=== PATIENT | male | born 1940 | race Two or more races ===

== ENCOUNTER 2017-10-07 09:46 | Outpatient (CLI) | payer OTHER ==
[~2017-10-07 09:46] MED LIST: INTESTINEX1 CAP PO; NABUMETONE750 MG PO; ORPH100T PO; PROTONIX40 MG PO
== END 2017-10-07 09:51 | disposition home or self-care (01) ==
LOC: LAB 09:46
DX: R97.20 Elevated prostate specific antigen [PSA] (principal)

== ENCOUNTER 2017-10-17 07:23 | Outpatient (CLI) | payer OTHER | END 2017-10-17 15:06 | disposition home or self-care (01) | LOC: SONOGRAMA 07:23 | DX: R97.20 Elevated prostate specific antigen [PSA] (principal) ==

== ENCOUNTER 2017-10-24 11:41 | Outpatient (CLI) | payer OTHER | END 2017-10-24 16:52 | disposition home or self-care (01) | LOC: TOM 11:41 | DX: C61 Malignant neoplasm of prostate (principal) ==

== ENCOUNTER 2017-10-30 10:47 | Outpatient (CLI) | payer OTHER | END 2017-10-30 17:03 | disposition home or self-care (01) | LOC: NUCLEAR 10:47 | DX: C61 Malignant neoplasm of prostate (principal) | CPT/HCPCS: 78306; 78320; A9503 ==

== ENCOUNTER → 2017-11-20 | Outpatient (CLI) | payer OTHER | END | disposition home or self-care (01) | LOC: TOM 09:00 | DX: J43.8 Other emphysema (principal) ==

== ENCOUNTER 2017-12-15 10:20 | Outpatient (CLI) | payer OTHER | END 2017-12-15 10:24 | disposition home or self-care (01) | LOC: RAD 10:20 | DX: I11.9 Hypertensive heart disease without heart failure (principal) ==

== ENCOUNTER → 2018-03-10 11:32 | Outpatient (CLI) | payer OTHER | END | disposition home or self-care (01) | LOC: LAB 11:32 | DX: C61 Malignant neoplasm of prostate (principal) ==

== ENCOUNTER 2018-12-10 12:05 | Outpatient (CLI) | payer OTHER | END 2018-12-10 12:07 | disposition home or self-care (01) | LOC: RAD 12:05 | DX: I11.9 Hypertensive heart disease without heart failure (principal) ==

== ENCOUNTER 2021-08-28 12:46 | Outpatient (CLI) | payer OTHER | END 2021-08-28 12:50 | disposition home or self-care (01) | LOC: RAD 12:46 | PROVIDERS: ATTEND Specialist | DX: M79.641 Pain in right hand (principal); M79.642 Pain in left hand ==

== ENCOUNTER → 2023-03-09 | Emergency (ER) | payer OTHER ==
[~2023-03-09] VITALS: Ht 167.6 cm; Wt 68.0 kg
[~2023-03-09] MED LIST changes: +AMLODIPINE BESY10 MG PO; +BUDESONIDE-FO10.2 GM IH; +FUROSEMIDE20 MG PO; +LISINOPRIL5 MG PO; +TRELEGY ELLIPT1 EACH IH
[2023-03-09 18:00] LABS: HEMATOCRIT 46.6 % (39.0-48.0); HEMOGLOBIN 15.7 g/dL (13-16.00); MEAN CELL VOLUME 83.1 fL (80.0-100.00); MEAN CORPUSCULAR HGB CONC 33.8 g/dl (32.0-36.0); PLATELET COUNT 197 K/uL (150-450); RED BLOOD COUNT 5.61 M/uL (4.00-6.00); RED CELL DISTRIBUTION WIDTH 14.4 % (11.5-14.5)
[2023-03-09 18:17] LABS: CALCIUM 9.7 mg/dL (8.5-10.1); CREATININE SERUM 0.95 mg/dL (0.70-1.30); GFR 75.53; POTASSIUM 4.65 mEq/L (3.5-5.1)
[2023-03-10 11:08] LABS: PH,URINE 5.5 (5.0-8.0); URINE APPEARANCE Clear; URINE BILIRRUBIN Small (NEGATIVE); URINE BLOOD Negative; URINE COLOR Dark Yellow; URINE GLUCOSE Negative (NEGATIVE); URINE LEUKOCYTE Trace; URINE NITRATE Negative; URINE PROTEIN 30 (NEGATIVE); URINE RBC 3.4 uL (0.0-20.8)
[2023-03-10 11:39] LABS: URINE BACTERIA 1.2 uL (0.0-1933); URINE EPITHELIAL CELLS 0.1 uL (0.0-38.8); URINE WBC 0.1 uL (0.0-23.2)
== END | disposition home or self-care (01) ==
LOC: ER 14:02
PROVIDERS: General Practice
DX: U07.1 COVID-19 (principal)

== ENCOUNTER 2023-03-22 08:19 | Emergency (ER) | payer OTHER ==
[~2023-03-22] VITALS: Ht 172.7 cm; Wt 63.5 kg
[2023-03-22 11:17] LABS: HEMATOCRIT 49.5 % (39.0-48.0); HEMOGLOBIN 16.2 g/dL (13-16.00); MEAN CELL VOLUME 83.1 fL (80.0-100.00); MEAN CORPUSCULAR HEMOGLOBIN 27.2 pg (27.00-32.0); MEAN CORPUSCULAR HGB CONC 32.8 g/dl (32.0-36.0); PLATELET COUNT 283 K/uL (150-450); RED BLOOD COUNT 5.95 M/uL (4.00-6.00); RED CELL DISTRIBUTION WIDTH 13.9 % (11.5-14.5)
[2023-03-22 11:58] LABS: CALCIUM 9.6 mg/dL (8.5-10.1); CREATININE SERUM 1.06 mg/dL (0.70-1.30); GFR 66.56; POTASSIUM 5.02 mEq/L (3.5-5.1)
[2023-03-22 12:16] LABS: URINE APPEARANCE Clear; URINE BILIRRUBIN Small (NEGATIVE); URINE BLOOD Negative; URINE COLOR Dark Yellow; URINE GLUCOSE Negative (NEGATIVE); URINE LEUKOCYTE Negative; URINE NITRATE Negative; URINE PROTEIN 30 (NEGATIVE)
[2023-03-22 12:17] LABS: URINE BACTERIA 18.8 uL (0.0-1933); URINE EPITHELIAL CELLS 10.3 uL (0.0-38.8); URINE RBC 13.2 uL (0.0-20.8); URINE WBC 4.3 uL (0.0-23.2)
== END 2023-03-22 14:21 | disposition home or self-care (01) ==
LOC: ER 08:19
PROVIDERS: General Practice
DX: A08.39 Other viral enteritis (principal); E86.0 Dehydration; I10 Essential (primary) hypertension; E11.9 Type 2 diabetes mellitus without complications; Z85.46 Personal history of malignant neoplasm of prostate

== ENCOUNTER 2023-04-16 11:14 | Emergency (ER) | payer OTHER ==
[~2023-04-16] VITALS: Ht 172.7 cm; Wt 68.0 kg
[2023-04-16] MEDS ORDERED: TRELEGY ELLIPT1 EACH IH (12:02)
== END 2023-04-16 12:06 | disposition home or self-care (01) ==
LOC: ER 11:15
DX: R09.81 Nasal congestion (principal); Z76.0 Encounter for issue of repeat prescription; I10 Essential (primary) hypertension; Z87.09 Personal history of other diseases of the respiratory system

== ENCOUNTER 2023-04-26 16:57 | Emergency (ER) | payer OTHER ==
[~2023-04-26] VITALS: Ht 170.2 cm; Wt 68.0 kg
== END 2023-04-26 20:42 | disposition home or self-care (01) ==
LOC: ER 16:58
DX: R42 Dizziness and giddiness (principal)

== ENCOUNTER 2023-07-28 13:16 | Outpatient (CLI) | payer OTHER | END 2023-07-28 13:20 | disposition home or self-care (01) | LOC: RAD 13:16 | PROVIDERS: ATTEND Specialist | DX: J45.998 Other asthma (principal) ==

== ENCOUNTER 2023-08-06 08:49 | Outpatient (CLI) | payer OTHER ==
[2023-08-06 10:38] LABS: ALBUMIN 3.5 gm/dL (3.4-5.0); BILIRUBIN TOTAL 0.76 mg/dL (0.3-1.2); CALCIUM 9.3 mg/dL (8.5-10.1); CREATININE SERUM 0.76 mg/dL (0.70-1.30); GFR 97.71; GLOBULINA 3.1 G/DL (2.4-3.5); POTASSIUM 4.28 mEq/L (3.5-5.1); TOTAL PROTEIN 6.6 gm/dL (6.4-8.2)
[2023-08-06 10:46] LABS: C-REACTIVE PROTEIN 0.38 MG/DL (0.00-0.29)
== END 2023-08-06 08:51 | disposition home or self-care (01) ==
LOC: LAB 08:49
PROVIDERS: ATTEND Specialist
DX: E11.9 Type 2 diabetes mellitus without complications (principal); M00.89 Polyarthritis due to other bacteria

== ENCOUNTER 2023-08-22 10:54 | Emergency (ER) | payer OTHER ==
[~2023-08-22] VITALS: Ht 172.7 cm; Wt 68.0 kg
== END 2023-08-22 15:48 | disposition home or self-care (01) ==
LOC: ER 10:54
DX: I10 Essential (primary) hypertension (principal)

== ENCOUNTER 2023-09-10 09:48 | Outpatient (CLI) | payer OTHER | END 2023-09-10 10:01 | disposition home or self-care (01) | LOC: TOM 09:48 | PROVIDERS: ATTEND Specialist | DX: J47.9 Bronchiectasis, uncomplicated (principal) ==

== ENCOUNTER 2023-09-12 07:28 | Emergency (ER) | payer OTHER ==
[~2023-09-12] VITALS: Ht 172.7 cm; Wt 68.0 kg
[2023-09-12] MEDS ORDERED: 0.9 % SODIUM CHLORIDE 1,000 ML IV SCH (08:45)
[2023-09-12] MEDS ORDERED: METHYLPREDNISOLONE SOD SUCC 40 MG VIAL IV ONE (08:45)
[2023-09-12] MEDS ORDERED: levoFLOXacin IN DEXTROSE 5 % 5 MG/ML PIGGYBAG IV ONE (08:45)
[2023-09-12] MEDS ORDERED: LEVALBUTEROL HCL 0.63 MG/3 ML SOLUTION IH ONE (08:45)
[2023-09-12 08:56] LABS: HEMATOCRIT 44.1 % (39.0-48.0); HEMOGLOBIN 14.8 g/dL (13-16.00); MEAN CELL VOLUME 81.2 fL (80.0-100.00); MEAN CORPUSCULAR HEMOGLOBIN 27.3 pg (27.00-32.0); MEAN CORPUSCULAR HGB CONC 33.6 g/dl (32.0-36.0); PLATELET COUNT 217 K/uL (150-450); RED BLOOD COUNT 5.43 M/uL (4.00-6.00); RED CELL DISTRIBUTION WIDTH 13.9 % (11.5-14.5)
[2023-09-12 10:15] LABS: ABG PH 7.433 (7.35-7.45); ABG PO2 61.5 mmHg (80-100); ABG pCO2 37.8 mmHg (35-45); BASE EXCESS 0.7 mmol/l; BICARBONATE 24.7 mmol/l (23-25); SaO2 92.1 %; Tco2 25.9 mmol/l; o2 21 %
[2023-09-12 10:16] LABS: allen test SATISFACTORY; puncture site RADIAL RIGHT
== END 2023-09-12 12:17 | disposition home or self-care (01) ==
LOC: ER 07:29
PROVIDERS: Emergency Medicine
DX: J44.9 Chronic obstructive pulmonary disease, unspecified (principal)
CPT/HCPCS: 36415; 82803; 93005; 94640; 96365; 96366; 99284; J1956; J3490

== ENCOUNTER → 2023-09-16 | Emergency (ER) | payer OTHER ==
[~2023-09-16] VITALS: Ht 170.2 cm; Wt 68.0 kg
[~2023-09-16] MED LIST changes: +ACETAMINOPHEN 500 MG GEL..CAP PO ONE; +ALBUTEROL SULFATE 3 ML/2.5 MG AMPUL.NEB IH SCH; +CEFTRIAXONE SODIUM 2,000 MG VIAL IV STA; +IPRATROPIUM BROMIDE 0.5 MG/2.5 ML AMPUL.NEB IH STA; +METHYLPREDNISOLONE SOD SUCC 125 MG VIAL IV STA
[2023-09-16 05:31] LABS: HEMATOCRIT 41.7 % (39.0-48.0); HEMOGLOBIN 13.8 g/dL (13-16.00); MEAN CORPUSCULAR HEMOGLOBIN 27.2 pg (27.00-32.0); MEAN CORPUSCULAR HGB CONC 33.1 g/dl (32.0-36.0); PLATELET COUNT 289 K/uL (150-450); RED BLOOD COUNT 5.08 M/uL (4.00-6.00); RED CELL DISTRIBUTION WIDTH 14.1 % (11.5-14.5)
[2023-09-16 05:33] LABS: CALCIUM 8.9 mg/dL (8.5-10.1); CREATININE SERUM 1.06 mg/dL (0.70-1.30); GFR 66.56; POTASSIUM 3.82 mEq/L (3.5-5.1)
[2023-09-16 06:53] LABS: ABG PH 7.437 (7.35-7.45); ABG PO2 52.5 mmHg (80-100); ABG pCO2 39.9 mmHg (35-45); BASE EXCESS 2.1 mmol/l; BICARBONATE 26.3 mmol/l (23-25); SaO2 88.2 %; Tco2 27.6 mmol/l; allen test SATISFACTORY; puncture site RADIAL RIGHT
[2023-09-16 06:54] LABS: o2 21 %
== END | disposition left against medical advice (07) ==
LOC: ER 04:18
DX: J06.9 Acute upper respiratory infection, unspecified (principal); R05.9 Cough, unspecified; R53.81 Other malaise; R50.9 Fever, unspecified
CPT/HCPCS: 36415; 82803; 96365; 99282; J0696; J3490

== ENCOUNTER 2024-01-20 13:36 | Outpatient (CLI) | payer OTHER ==
[~2024-01-20 13:36] MED LIST changes: -ACETAMINOPHEN 500 MG GEL..CAP PO ONE; -ALBUTEROL SULFATE 3 ML/2.5 MG AMPUL.NEB IH SCH; -CEFTRIAXONE SODIUM 2,000 MG VIAL IV STA; -IPRATROPIUM BROMIDE 0.5 MG/2.5 ML AMPUL.NEB IH STA; -METHYLPREDNISOLONE SOD SUCC 125 MG VIAL IV STA
== END 2024-01-20 13:41 | disposition home or self-care (01) ==
LOC: TOM 13:36
PROVIDERS: ATTEND Specialist
DX: J44.9 Chronic obstructive pulmonary disease, unspecified (principal); J47.1 Bronchiectasis with (acute) exacerbation; J47.9 Bronchiectasis, uncomplicated

== ENCOUNTER 2024-03-15 15:44 | Emergency (ER) | payer OTHER ==
[~2024-03-15] VITALS: Ht 172.7 cm; Wt 68.0 kg
== END 2024-03-15 18:44 | disposition home or self-care (01) ==
LOC: ER 15:45
DX: R09.82 Postnasal drip (principal); I10 Essential (primary) hypertension

== ENCOUNTER 2024-03-21 09:48 | Emergency (ER) | payer OTHER ==
[~2024-03-21] VITALS: Ht 172.7 cm; Wt 68.0 kg
[2024-03-21] MEDS ORDERED: CEFTRIAXONE SODIUM 1,000 MG VIAL IM STA (10:14)
== END 2024-03-21 10:36 | disposition home or self-care (01) ==
LOC: ER 09:49
DX: R05.9 Cough, unspecified (principal)

== ENCOUNTER 2024-04-12 11:10 | Outpatient (CLI) | payer OTHER ==
[2024-04-12 12:58] LABS: HEMOGLOBIN 16.6 g/dL (13-16.00); MEAN CELL VOLUME 82.7 fL (80.0-100.00); MEAN CORPUSCULAR HEMOGLOBIN 28.1 pg (27.00-32.0); PLATELET COUNT 208 K/uL (150-450); RED BLOOD COUNT 5.92 M/uL (4.00-6.00); RED CELL DISTRIBUTION WIDTH 14.8 % (11.5-14.5)
[2024-04-12 13:50] LABS: ALBUMIN 3.9 gm/dL (3.4-5.0); ALKALINE PHOSPHATASE 113 U/L (50-136); ALT/SGPT 14 U/L (12-78); ANION GAP 7 (10.0-20.0); AST/SGOT 21 U/L (15-37); BILIRUBIN TOTAL 1.46 mg/dL (0.3-1.2); BLOOD UREA NITROGEN 15 mg/dL (7-18); BUN CREA RATIO 18 (7.0-25.0); CALCIUM 9.8 mg/dL (8.5-10.1); CARBON DIOXIDE 35 mEq/L (21-32); CHLORIDE 105 mmol/L (98-107); CHOL HDL RATIO 2.1 (0-5.0); CHOLESTEROL 145 mg/dL (0-200); CREATININE SERUM 0.85 mg/dL (0.70-1.30); GFR 85.67; GLOBULINA 3.2 G/DL (2.4-3.5); GLUCOSE FASTING 87 mg/dL (65-100); HDL 70 mg/dl (40-60); LDL 55 mg/dl (0-130); OSMOLALITY SERUM 283 MOSM/KG (275-295); POTASSIUM 4.84 mEq/L (3.5-5.1); PROSTATIC SPECIFIC ANTIGEN < 0.010 NG/ML (0.010-4.00); SODIUM 142 mmol/L (136-145); TOTAL PROTEIN 7.1 gm/dL (6.4-8.2); TRIGLYCERIDES 101 mg/dL (0-150); VLDL 20 (0-39)
== END 2024-04-12 11:16 | disposition home or self-care (01) ==
LOC: LAB 11:10
PROVIDERS: ATTEND Specialist
DX: N40.1 Benign prostatic hyperplasia with lower urinary tract symptoms (principal); E78.2 Mixed hyperlipidemia; E11.65 Type 2 diabetes mellitus with hyperglycemia; D64.9 Anemia, unspecified

== ENCOUNTER 2024-05-10 10:20 | Emergency (ER) | payer OTHER ==
[~2024-05-10] VITALS: Ht 172.7 cm; Wt 68.0 kg
[2024-05-10] MEDS ORDERED: KETOROLAC TROMETHAMINE 30 MG VIAL IM STA (12:21)
== END 2024-05-10 12:34 | disposition home or self-care (01) ==
LOC: ER 10:22
DX: M25.579 Pain in unspecified ankle and joints of unspecified foot (principal)
CPT/HCPCS: 96372; 99282; J1885

== ENCOUNTER 2024-05-28 10:28 | Emergency (ER) | payer OTHER ==
[~2024-05-28] VITALS: Ht 172.7 cm; Wt 68.0 kg
[2024-05-28] MEDS ORDERED: FARXIGA5 MG PO (11:24)
[2024-05-28 12:30] LABS: HEMATOCRIT 46.7 % (39.0-48.0); HEMOGLOBIN 15.4 g/dL (13-16.00); MEAN CELL VOLUME 85.1 fL (80.0-100.00); MEAN CORPUSCULAR HEMOGLOBIN 28.1 pg (27.00-32.0); PLATELET COUNT 226 K/uL (150-450); RED BLOOD COUNT 5.48 M/uL (4.00-6.00); RED CELL DISTRIBUTION WIDTH 14.1 % (11.5-14.5)
[2024-05-28 13:02] LABS: URINE APPEARANCE Clear; URINE BILIRRUBIN Small (NEGATIVE); URINE BLOOD Negative; URINE COLOR Dark Yellow; URINE KETONE Trace (NEGATIVE); URINE LEUKOCYTE Negative; URINE NITRATE Negative; URINE PROTEIN Trace (NEGATIVE)
[2024-05-28 13:05] LABS: URINE BACTERIA 9.7 uL (0.0-1933); URINE EPITHELIAL CELLS 4.2 uL (0.0-38.8); URINE RBC 13.4 uL (0.0-20.8); URINE WBC 4.7 uL (0.0-23.2)
[2024-05-28 13:25] LABS: URINE CAST 0.29 uL (0.0-1.40); URINE GLUCOSE 500 MG/DL (NEGATIVE)
[2024-05-28 14:13] LABS: CALCIUM 9.4 mg/dL (8.5-10.1); CREATININE SERUM 0.82 mg/dL (0.70-1.30); GFR 89.29; POTASSIUM 4.73 mEq/L (3.5-5.1)
== END 2024-05-28 14:58 | disposition home or self-care (01) ==
LOC: ER 10:30
PROVIDERS: General Practice
DX: R39.15 Urgency of urination (principal)

== ENCOUNTER 2024-05-31 10:48 | Outpatient (CLI) | payer OTHER ==
[~2024-05-31 10:48] MED LIST changes: +FARXIGA5 MG PO
[2024-05-31 12:23] LABS: HEMATOCRIT 47.3 % (39.0-48.0); HEMOGLOBIN 15.6 g/dL (13-16.00); MEAN CELL VOLUME 84.8 fL (80.0-100.00); PLATELET COUNT 235 K/uL (150-450); RED BLOOD COUNT 5.58 M/uL (4.00-6.00); RED CELL DISTRIBUTION WIDTH 14.5 % (11.5-14.5)
[2024-05-31 12:47] LABS: PH,URINE 6.5 (5.0-8.0); URINE APPEARANCE Clear; URINE BILIRRUBIN Negative (NEGATIVE); URINE BLOOD Negative; URINE COLOR Yellow; URINE KETONE Negative (NEGATIVE); URINE LEUKOCYTE Negative; URINE NITRATE Negative; URINE PROTEIN Negative (NEGATIVE)
[2024-05-31 12:52] LABS: URINE EPITHELIAL CELLS 2.6 uL (0.0-38.8)
[2024-05-31 12:54] LABS: CREATININE URINE RANDOM 47.4 MG/DL (30-125)
[2024-05-31 12:59] LABS: URINE BACTERIA 1.2 uL (0.0-1933); URINE GLUCOSE >=1000 MG/DL (NEGATIVE)
[2024-05-31 13:39] LABS: ALBUMIN 3.7 gm/dL (3.4-5.0); ALKALINE PHOSPHATASE 113 U/L (50-136); ALT/SGPT 9 U/L (12-78); ANION GAP 5 (10.0-20.0); AST/SGOT 15 U/L (15-37); BILIRUBIN TOTAL 1.26 mg/dL (0.3-1.2); BLOOD UREA NITROGEN 17 mg/dL (7-18); BUN CREA RATIO 20 (7.0-25.0); CALCIUM 9.5 mg/dL (8.5-10.1); CARBON DIOXIDE 35 mEq/L (21-32); CHLORIDE 107 mmol/L (98-107); CHOL HDL RATIO 2.2 (0-5.0); CHOLESTEROL 139 mg/dL (0-200); CREATININE SERUM 0.84 mg/dL (0.70-1.30); FREE TRIODOTIRONINE 2.43 pg/ml (2.18-3.98); GFR 86.84; GLUCOSE FASTING 130 mg/dL (65-100); HDL 64 mg/dl (40-60); LDL 52 mg/dl (0-130); OSMOLALITY SERUM 288 MOSM/KG (275-295); SODIUM 143 mmol/L (136-145); T4 FREE 0.92 NG/ML (0.76-1.46); TOTAL PROTEIN 6.7 gm/dL (6.4-8.2); TRIGLYCERIDES 113 mg/dL (0-150); VLDL 22 (0-39)
[2024-05-31 14:04] LABS: PROSTATIC SPECIFIC ANTIGEN < 0.010 NG/ML (0.010-4.00)
[2024-05-31 14:28] LABS: ERYTHROCYTE SEDIMENTATION RATE 7 mm/hr
[2024-06-01 09:29] LABS: PLATELET ESTIMATE NORMAL (NORMAL)
== END 2024-05-31 10:56 | disposition home or self-care (01) ==
LOC: LAB 10:48
PROVIDERS: ATTEND Specialist
DX: E03.9 Hypothyroidism, unspecified (principal); N39.9 Disorder of urinary system, unspecified; D40.0 Neoplasm of uncertain behavior of prostate; E78.2 Mixed hyperlipidemia; E11.65 Type 2 diabetes mellitus with hyperglycemia; D64.9 Anemia, unspecified; N39.0 Urinary tract infection, site not specified; E11.21 Type 2 diabetes mellitus with diabetic nephropathy; E55.9 Vitamin D deficiency, unspecified; M35.3 Polymyalgia rheumatica

== ENCOUNTER 2024-06-23 16:32 | Emergency (ER) | payer OTHER ==
[~2024-06-23] VITALS: Ht 172.7 cm; Wt 68.0 kg
[2024-06-23] MEDS ORDERED: GUAIFENESIN/DEXTROMETHORPHAN 10ML BLIST.PACK PO ONE (19:58)
[2024-06-23] MEDS ORDERED: GUAIFENESIN 200 MG/10 ML BLIST.PACK PO ONE (20:00)
[2024-06-23] MEDS ORDERED: BENZONATATE 100 MG CAPSULE PO ONE (20:00)
[2024-06-23 20:04] LABS: HEMATOCRIT 47.3 % (39.0-48.0); HEMOGLOBIN 15.3 g/dL (13-16.00); MEAN CELL VOLUME 84.6 fL (80.0-100.00); MEAN CORPUSCULAR HEMOGLOBIN 27.4 pg (27.00-32.0); MEAN CORPUSCULAR HGB CONC 32.4 g/dl (32.0-36.0); PLATELET COUNT 251 K/uL (150-450); RED CELL DISTRIBUTION WIDTH 14.1 % (11.5-14.5)
[2024-06-23 20:42] LABS: CALCIUM 9.3 mg/dL (8.5-10.1); CREATININE SERUM 0.9 mg/dL (0.70-1.30); GFR 80.2; POTASSIUM 4.15 mEq/L (3.5-5.1)
== END 2024-06-23 21:49 | disposition home or self-care (01) ==
LOC: ER 16:34
PROVIDERS: Emergency Medicine
DX: R53.81 Other malaise (principal); J40 Bronchitis, not specified as acute or chronic; R05.9 Cough, unspecified; Z20.822 Contact with and (suspected) exposure to COVID-19; I10 Essential (primary) hypertension

== ENCOUNTER → 2024-06-29 | Emergency (ER) | payer OTHER ==
[~2024-06-29] VITALS: Ht 172.7 cm; Wt 68.0 kg
== END | disposition left against medical advice (07) ==
LOC: ER 12:06
DX: Z53.21 Procedure and treatment not carried out due to patient leaving prior to being seen by health care provider (principal)

== ENCOUNTER → 2024-07-08 12:12 | Outpatient (CLI) | payer OTHER ==
[2024-07-08 13:02] LABS: HEMATOCRIT 47.9 % (39.0-48.0); HEMOGLOBIN 15.6 g/dL (13-16.00); MEAN CELL VOLUME 85.2 fL (80.0-100.00); MEAN CORPUSCULAR HEMOGLOBIN 27.8 pg (27.00-32.0); MEAN CORPUSCULAR HGB CONC 32.6 g/dl (32.0-36.0); PLATELET COUNT 283 K/uL (150-450); RED BLOOD COUNT 5.63 M/uL (4.00-6.00); RED CELL DISTRIBUTION WIDTH 13.7 % (11.5-14.5)
[2024-07-08 13:03] LABS: URINE APPEARANCE Clear; URINE BILIRRUBIN Small (NEGATIVE); URINE BLOOD Negative; URINE COLOR Dark Yellow; URINE GLUCOSE Negative (NEGATIVE); URINE KETONE Trace (NEGATIVE); URINE LEUKOCYTE Trace; URINE NITRATE Negative; URINE PROTEIN Trace (NEGATIVE)
[2024-07-08 13:07] LABS: URINE BACTERIA 85.6 uL (0.0-1933); URINE EPITHELIAL CELLS 10.1 uL (0.0-38.8); URINE RBC 13.6 uL (0.0-20.8); URINE WBC 3.4 uL (0.0-23.2)
[2024-07-08 13:14] LABS: URINE CAST 0.58 uL (0.0-1.40)
[2024-07-08 14:26] LABS: ALBUMIN 3.6 gm/dL (3.4-5.0); ALKALINE PHOSPHATASE 134 U/L (50-136); ALT/SGPT 7 U/L (12-78); ANION GAP 3 (10.0-20.0); AST/SGOT 15 U/L (15-37); BILIRUBIN TOTAL 1.15 mg/dL (0.3-1.2); BLOOD UREA NITROGEN 14 mg/dL (7-18); BUN CREA RATIO 18 (7.0-25.0); CALCIUM 9.8 mg/dL (8.5-10.1); CARBON DIOXIDE 36 mEq/L (21-32); CHLORIDE 107 mmol/L (98-107); CHOL HDL RATIO 2.5 (0-5.0); CHOLESTEROL 144 mg/dL (0-200); CREATININE SERUM 0.77 mg/dL (0.70-1.30); FREE TRIODOTIRONINE 2.35 pg/ml (2.18-3.98); GFR 96.02; GLOBULINA 3.6 G/DL (2.4-3.5); GLUCOSE FASTING 93 mg/dL (65-100); HDL 58 mg/dl (40-60); LDL 66 mg/dl (0-130); OSMOLALITY SERUM 281 MOSM/KG (275-295); POTASSIUM 5.22 mEq/L (3.5-5.1); SODIUM 141 mmol/L (136-145); T4 FREE 0.98 NG/ML (0.76-1.46); TOTAL PROTEIN 7.2 gm/dL (6.4-8.2); TRIGLYCERIDES 102 mg/dL (0-150); VLDL 20 (0-39)
[2024-07-08 14:27] LABS: PROSTATIC SPECIFIC ANTIGEN < 0.010 NG/ML (0.010-4.00)
== END | disposition home or self-care (01) ==
LOC: LAB 12:12
PROVIDERS: ATTEND Specialist
DX: E03.9 Hypothyroidism, unspecified (principal); E11.21 Type 2 diabetes mellitus with diabetic nephropathy; N39.0 Urinary tract infection, site not specified; D40.0 Neoplasm of uncertain behavior of prostate; E78.2 Mixed hyperlipidemia; E11.65 Type 2 diabetes mellitus with hyperglycemia; D64.9 Anemia, unspecified; E55.9 Vitamin D deficiency, unspecified

== ENCOUNTER 2024-07-22 10:13 | Emergency (ER) | payer OTHER ==
[~2024-07-22] VITALS: Ht 172.7 cm; Wt 68.0 kg
[2024-07-22] MEDS ORDERED: ASPIRIN 325 MG TABLET.EC PO STA (11:08)
[2024-07-22 11:40] LABS: HEMATOCRIT 50.1 % (39.0-48.0); HEMOGLOBIN 16.8 g/dL (13-16.00); MEAN CELL VOLUME 83.4 fL (80.0-100.00); MEAN CORPUSCULAR HGB CONC 33.5 g/dl (32.0-36.0); PLATELET COUNT 272 K/uL (150-450); RED CELL DISTRIBUTION WIDTH 14.3 % (11.5-14.5)
[2024-07-22] MEDS ORDERED: ASPIRIN 325 MG TABLET.EC PO ONE (11:40)
[2024-07-22 12:06] LABS: INR 1.08; PARTIAL THROMBOPLASTIN TIME 29.8 SECONDS (22.0-34.0); PROTHROMBIN TIME 11.7 SECONDS (9.0-11.5)
[2024-07-22 12:22] LABS: CALCIUM 9.5 mg/dL (8.5-10.1); CREATININE SERUM 0.78 mg/dL (0.70-1.30); GFR 94.6; POTASSIUM 4.69 mEq/L (3.5-5.1)
== END 2024-07-22 14:33 | disposition home or self-care (01) ==
LOC: ER 10:16
PROVIDERS: Emergency Medicine
DX: R53.81 Other malaise (principal); R07.9 Chest pain, unspecified; I10 Essential (primary) hypertension

== ENCOUNTER 2024-08-11 12:51 | Outpatient (CLI) | payer OTHER | END 2024-08-11 12:56 | disposition home or self-care (01) | LOC: RAD 12:51 | PROVIDERS: ATTEND Specialist | DX: S22.32XA Fracture of one rib, left side, initial encounter for closed fracture (principal) ==

== ENCOUNTER → 2024-08-30 | Emergency (ER) | payer OTHER ==
[~2024-08-30] VITALS: Ht 167.6 cm; Wt 68.0 kg
== END | disposition left against medical advice (07) ==
LOC: ER 11:33
DX: Z53.21 Procedure and treatment not carried out due to patient leaving prior to being seen by health care provider (principal)

== ENCOUNTER 2024-09-01 08:51 | Emergency (ER) | payer OTHER ==
[~2024-09-01] VITALS: Ht 170.2 cm; Wt 68.0 kg
== END 2024-09-01 10:24 | disposition home or self-care (01) ==
LOC: ER 08:52
DX: F41.9 Anxiety disorder, unspecified (principal); F32.A Depression, unspecified

== ENCOUNTER 2024-09-06 17:01 | Emergency (ER) | payer OTHER ==
[~2024-09-06] VITALS: Ht 165.1 cm; Wt 77.1 kg
== END 2024-09-06 19:23 | disposition home or self-care (01) ==
LOC: ER 17:01
DX: F43.9 Reaction to severe stress, unspecified (principal); I10 Essential (primary) hypertension; E11.9 Type 2 diabetes mellitus without complications

== ENCOUNTER 2024-09-18 17:40 | Emergency (ER) | payer OTHER ==
[~2024-09-18] VITALS: Ht 172.7 cm; Wt 68.0 kg
[2024-09-18] MEDS ORDERED: BUDESONIDE 0.25 MG/2 ML AMPUL.NEB IH STA (20:37)
[2024-09-18] MEDS ORDERED: BUDESONIDE 0.25 MG/2 ML AMPUL.NEB IH ONE (20:51)
[2024-09-18] MEDS ORDERED: SYMBICORT 80/10.2 GM IH (21:16)
== END 2024-09-18 21:57 | disposition home or self-care (01) ==
LOC: ER 17:41
DX: J45.901 Unspecified asthma with (acute) exacerbation (principal); R53.81 Other malaise; E11.9 Type 2 diabetes mellitus without complications

== ENCOUNTER → 2024-09-28 | Emergency (ER) | payer OTHER ==
[~2024-09-28] MED LIST changes: +SYMBICORT 80/10.2 GM IH
== END | disposition left against medical advice (07) ==
LOC: ER 16:04
DX: J44.9 Chronic obstructive pulmonary disease, unspecified (principal); J90 Pleural effusion, not elsewhere classified; Z85.89 Personal history of malignant neoplasm of other organs and systems; J45.909 Unspecified asthma, uncomplicated; F17.200 Nicotine dependence, unspecified, uncomplicated

== ENCOUNTER → 2024-09-28 | Emergency (ER) | payer OTHER ==
[~2024-09-28] VITALS: Ht 165.1 cm; Wt 59.0 kg
[~2024-09-28] MED LIST changes: +BUDESONIDE 0.5 MG/2 ML AMPUL.NEB IH STA; +IPRATROPIUM BROMIDE 0.5 MG/2.5 ML AMPUL.NEB IH ONE; +LEVALBUTEROL HCL 0.63 MG/3 ML SOLUTION IH ONE; +LEVALBUTEROL HCL 1.25 MG/3 ML SOLUTION IH STA; +METHYLPREDNISOLONE SOD SUCC 125 MG VIAL IV STA; +METHYLPREDNISOLONE SOD SUCC 125 MG VIAL ONE
[2024-09-28 14:51] LABS: HEMATOCRIT 50.5 % (39.0-48.0); HEMOGLOBIN 16.3 g/dL (13-16.00); MEAN CELL VOLUME 85.3 fL (80.0-100.00); MEAN CORPUSCULAR HEMOGLOBIN 27.6 pg (27.00-32.0); MEAN CORPUSCULAR HGB CONC 32.3 g/dl (32.0-36.0); PLATELET COUNT 252 K/uL (150-450); RED BLOOD COUNT 5.92 M/uL (4.00-6.00); RED CELL DISTRIBUTION WIDTH 15.5 % (11.5-14.5)
[2024-09-28 14:52] LABS: INFLUENZA A AG NEGATIVE (NEGATIVE)
[2024-09-28 15:18] LABS: CALCIUM 9.6 mg/dL (8.5-10.1); CREATININE SERUM 0.79 mg/dL (0.70-1.30); GFR 93.22; POTASSIUM 4.47 mEq/L (3.5-5.1)
== END | disposition left against medical advice (07) ==
LOC: ER 10:47
PROVIDERS: General Practice
DX: J90 Pleural effusion, not elsewhere classified (principal); J44.89 Other specified chronic obstructive pulmonary disease; J45.909 Unspecified asthma, uncomplicated
CPT/HCPCS: 71046; 94640; 96365; 99283; J3490

== ENCOUNTER 2024-09-29 06:27 | Inpatient (IN) | payer OTHER ==
[~2024-09-29] VITALS: Ht 165.1 cm; Wt 56.7 kg
[~2024-09-29 06:27] MED LIST changes: -BUDESONIDE 0.5 MG/2 ML AMPUL.NEB IH STA; -IPRATROPIUM BROMIDE 0.5 MG/2.5 ML AMPUL.NEB IH ONE; -LEVALBUTEROL HCL 0.63 MG/3 ML SOLUTION IH ONE; -LEVALBUTEROL HCL 1.25 MG/3 ML SOLUTION IH STA; -METHYLPREDNISOLONE SOD SUCC 125 MG VIAL IV STA; -METHYLPREDNISOLONE SOD SUCC 125 MG VIAL ONE
--- NOTE | 2024-09-29 07:39 | NUR ---
SE PRESENTA PACIENTE ALERTA Y CONCIENTE X3. EL MISMO REFIERE JOSE VENIDO DANIEL POR UN EPISODIO DE ASMA E IRSE A MITAD DE TRATAMIENTO. SE PROCEDE A SOLEDAD S/V AL PACIENTE Y SE UBICA.
--- NOTE | 2024-09-29 12:35 | NUR ---
SE ORIENTA A PTE SOBRE TRATAMIENTO MEDICO QUIEN REFIERE ENTENDER Y ACEPTAR, SE APLICA H/L BAJO MEDIDAS ASEPTICAS DELLA ORDEN MEDICA VERVAL DE DR. NEAL, SE UBICA PTE EN CAMA 06 CON [address].
[2024-09-29] MEDS ORDERED: ALBUTEROL SULFATE 3 ML/2.5 MG AMPUL.NEB IH SCH (13:54)
[2024-09-29] MEDS ORDERED: CEFTRIAXONE SODIUM 1,000 MG VIAL IV SCH (14:04)
[2024-09-29] MEDS ORDERED: ENALAPRILAT DIHYDRATE 1.25 MG/ML VIAL IV PRN (14:15)
[2024-09-29] MEDS ORDERED: ALBUTEROL SULFATE 3 ML/2.5 MG AMPUL.NEB IH ONE (16:06)
[2024-09-29 16:18] LABS: ABG PH 7.415 (7.35-7.45); ABG PO2 67.1 mmHg (80-100); ABG pCO2 39.7 mmHg (35-45); BASE EXCESS 0.4 mmol/l; BICARBONATE 24.9 mmol/l (23-25); SaO2 93.3 %; Tco2 26.1 mmol/l
[2024-09-29] MEDS ORDERED: ENOXAPARIN SODIUM 40 MG/0.4 ML SYRINGE SUBCUTANEO ONE (16:28)
[2024-09-29] MEDS ORDERED: ENALAPRILAT DIHYDRATE 1.25 MG/ML VIAL IV ONE (16:28)
[2024-09-29] MEDS ORDERED: CEFTRIAXONE SODIUM 1,000 MG VIAL ONE (16:28)
[2024-09-29 16:57] VITALS: BP 188/94; O2SAT 95
[2024-09-29 17:00] VITALS: BP 188/94
[2024-09-29] MEDS ORDERED: ENOXAPARIN SODIUM 40 MG/0.4 ML SYRINGE SUBCUTANEO SCH (17:00)
[2024-09-29 17:18] LABS: INR 1.15; PARTIAL THROMBOPLASTIN TIME 30.5 SECONDS (22.0-34.0); PROTHROMBIN TIME 12.4 SECONDS (9.0-11.5)
[2024-09-29 17:56] LABS: allen test SATISFACTORY; mode ROOM AIR; o2 21 %; puncture site RADIAL RIGHT
[2024-09-29 18:07] LABS: URINE APPEARANCE Clear; URINE BILIRRUBIN Negative (NEGATIVE); URINE BLOOD Negative; URINE COLOR Dark Yellow; URINE KETONE Negative (NEGATIVE); URINE LEUKOCYTE Negative; URINE NITRATE Negative; URINE PROTEIN Trace (NEGATIVE)
[2024-09-29 18:08] LABS: URINE BACTERIA 35.4 uL (0.0-1933); URINE EPITHELIAL CELLS 6.6 uL (0.0-38.8); URINE RBC 8.2 uL (0.0-20.8); URINE WBC 4.9 uL (0.0-23.2)
[2024-09-29 18:14] LABS: URINE CAST 0.29 uL (0.0-1.40); URINE GLUCOSE >=1000 MG/DL (NEGATIVE)
[2024-09-29 19:18] VITALS: BP 173/88
[2024-09-29] MEDS ORDERED: FAMOTIDINE/PF 20 MG/2 ML VIAL IV SCH (21:00)
[2024-09-29] MEDS ORDERED: FAMOTIDINE/PF 20 MG/10 ML SYRINGE IV SCH (21:00)
[2024-09-30 02:50] VITALS: BP 178/85; O2SAT 94
[2024-09-30 06:44] LABS: HEMATOCRIT 46.5 % (39.0-48.0); HEMOGLOBIN 15.6 g/dL (13-16.00); MEAN CELL VOLUME 83.8 fL (80.0-100.00); MEAN CORPUSCULAR HEMOGLOBIN 28.2 pg (27.00-32.0); MEAN CORPUSCULAR HGB CONC 33.6 g/dl (32.0-36.0); PLATELET COUNT 185 K/uL (150-450); RED BLOOD COUNT 5.55 M/uL (4.00-6.00); RED CELL DISTRIBUTION WIDTH 15.5 % (11.5-14.5)
[2024-09-30 07:08] LABS: ERYTHROCYTE SEDIMENTATION RATE 6 mm/hr
[2024-09-30 07:54] LABS: ALBUMIN 3.6 gm/dL (3.4-5.0); ALKALINE PHOSPHATASE 98 U/L (50-136); ALT/SGPT 12 U/L (12-78); ANION GAP 7 (10.0-20.0); AST/SGOT 23 U/L (15-37); BILIRUBIN TOTAL 1.07 mg/dL (0.3-1.2); BLOOD UREA NITROGEN 27 mg/dL (7-18); BUN CREA RATIO 31 (7.0-25.0); CALCIUM 9.5 mg/dL (8.5-10.1); CARBON DIOXIDE 32 mEq/L (21-32); CHLORIDE 107 mmol/L (98-107); CREATININE SERUM 0.88 mg/dL (0.70-1.30); GLOBULINA 2.8 G/DL (2.4-3.5); GLUCOSE FASTING 86 mg/dL (65-100); OSMOLALITY SERUM 286 MOSM/KG (275-295); PHOSPHOROUS 3.2 mg/dL (2.5-4.9); POTASSIUM 5.37 mEq/L (3.5-5.1); SODIUM 141 mmol/L (136-145); TOTAL PROTEIN 6.4 gm/dL (6.4-8.2)
[2024-09-30 07:56] LABS: C-REACTIVE PROTEIN < 0.29 MG/DL (0.00-0.29)
[2024-09-30 08:10] VITALS: BP 177/88; O2SAT 91
[2024-09-30] MEDS ORDERED: AMLODIPINE BESYLATE 5 MG TABLET PO SCH (09:00)
[2024-09-30] MEDS ORDERED: LISINOPRIL 5 MG TABLET PO SCH ×2 (09:00→10:56)
[2024-09-30] MEDS ORDERED: AMLODIPINE BESYLATE 10 MG TABLET PO SCH (09:00)
[2024-09-30 17:01] VITALS: BP 146/76; O2SAT 99
[2024-09-30 22:32] LABS: TP PLEURAL FLUID 5.6 g/dl
[2024-09-30 23:50] LABS: PLEURAL FLUID COLOR YELLOW
[2024-09-30 23:51] LABS: MONONUCLEAR 88 %; PLEURAL FLUID APPEARANCE HAZY; POLYMORPHONUCLEAR 12 %
== END 2024-09-30 20:08 | disposition left against medical advice (07) | DRG 188 ==
LOC: ER 06:28 → SEC-K 14:22 → MEDJ 15:41
PROVIDERS: Internal Medicine Geriatric Medicine; Radiology Vascular & Interventional Radiology; ADMIT Specialist; ATTEND Specialist
PROC: BB24ZZZ Computerized Tomography (CT Scan) of Bilateral Lungs (ICD-10-PCS; principal; 2024-09-29)
PROC: 4A033R1 Measurement of Arterial Saturation, Peripheral, Percutaneous Approach (ICD-10-PCS; 2024-09-29)
PROC: 3E0F7GC Introduction of Other Therapeutic Substance into Respiratory Tract, Via Natural or Artificial Opening (ICD-10-PCS; 2024-09-29)
PROC: 0W9B3ZZ Drainage of Left Pleural Cavity, Percutaneous Approach (ICD-10-PCS; 2024-09-30)
DX: J90 Pleural effusion, not elsewhere classified (principal); Z53.29 Procedure and treatment not carried out because of patient's decision for other reasons

== ENCOUNTER → 2024-10-30 | Emergency (ER) | payer OTHER ==
[~2024-10-30] VITALS: Ht 172.7 cm; Wt 68.0 kg
[~2024-10-30] MED LIST changes: +ALBUTEROL SULFATE 3 ML/2.5 MG AMPUL.NEB IH ONE; +ALBUTEROL SULFATE 3 ML/2.5 MG AMPUL.NEB IH STA
== END | disposition home or self-care (01) ==
LOC: ER 08:24
DX: J45.909 Unspecified asthma, uncomplicated (principal); I10 Essential (primary) hypertension

== ENCOUNTER 2024-11-08 14:55 | Inpatient (IN) | payer OTHER ==
[~2024-11-08] VITALS: Ht 172.7 cm; Wt 68.0 kg
[~2024-11-08 14:55] MED LIST changes: -ALBUTEROL SULFATE 3 ML/2.5 MG AMPUL.NEB IH ONE; -ALBUTEROL SULFATE 3 ML/2.5 MG AMPUL.NEB IH STA
[2024-11-08 15:42] VITALS: O2SAT 98
[2024-11-08 16:49] LABS: ABG PH 7.437 (7.35-7.45); ABG PO2 72.6 mmHg (80-100); ABG pCO2 36.7 mmHg (35-45); BASE EXCESS 0.4 mmol/l; BICARBONATE 24.2 mmol/l (23-25); Tco2 25.4 mmol/l
[2024-11-08 17:04] LABS: EOS # 0.12 (0.04-0.54); EOS % 1.5 % (0.7-7.0); HEMATOCRIT 52.6 % (40.1-51.0); HEMOGLOBIN 16.6 g/dL (13.7-17.5); LYMPH # 1.59 (1.18-3.74); LYMPH % 20.5 % (19.3-53.1); MEAN CORPUSCULAR HEMOGLOBIN 26.8 pg (25.6-32.2); MONO # 0.67 (0.24-0.82); MONO % 8.6 % (4.7-12.5); NEUT # 5.29 (1.56-6.13); NEUT % 68.1 % (34.0-71.1); PLATELET COUNT 237 K/uL (163-369); RED CELL DISTRIBUTION WIDTH 13.7 % (11.6-14.4)
[2024-11-08 17:21] LABS: INR 1.08; PARTIAL THROMBOPLASTIN TIME 28.5 SECONDS (22.0-34.0); PROTHROMBIN TIME 11.7 SECONDS (9.0-11.5)
[2024-11-08 18:24] LABS: ALBUMIN 3.5 gm/dL (3.4-5.0); BILIRUBIN TOTAL 1.17 mg/dL (0.3-1.2); CALCIUM 9.7 mg/dL (8.5-10.1); CREATININE SERUM 1.06 mg/dL (0.70-1.30); GFR 66.4; GLOBULINA 3.3 G/DL (2.4-3.5); POTASSIUM 4.72 mEq/L (3.5-5.1); TOTAL PROTEIN 6.8 gm/dL (6.4-8.2)
[2024-11-08 18:28] LABS: allen test SATISFACTORY; mode ROOM AIR; o2 21 %; puncture site RADIAL LEFT
[2024-11-08] MEDS ORDERED: FUROsemide 20 MG/2 ML VIAL IV SCH (22:32)
[2024-11-08] MEDS ORDERED: IPRATROPIUM BROMIDE 0.5 MG/2.5 ML AMPUL.NEB IH SCH (22:35)
[2024-11-08] MEDS ORDERED: ACETAMINOPHEN 500 MG GEL..CAP PO PRN (22:45)
[2024-11-08] MEDS ORDERED: IPRATROPIUM BROMIDE 0.5 MG/2.5 ML AMPUL.NEB IH ONE (23:51)
[2024-11-09 02:48] VITALS: BP 100/64
[2024-11-09] MEDS ORDERED: LISINOPRIL 5 MG TABLET PO SCH (09:00)
[2024-11-09] MEDS ORDERED: FAMOTIDINE/PF 20 MG in 0.9 % SODIUM CHLORIDE 8 ML IV PUSH SCH (09:00)
[2024-11-09] MEDS ORDERED: AMLODIPINE BESYLATE 5 MG TABLET PO SCH (17:00)
== END 2024-11-09 10:35 | disposition left against medical advice (07) | DRG 188 ==
LOC: ER 14:55 → SEC-K 23:07
PROVIDERS: General Practice; ADMIT Specialist; ATTEND Specialist
PROC: 4A033R1 Measurement of Arterial Saturation, Peripheral, Percutaneous Approach (ICD-10-PCS; principal; 2024-11-08)
PROC: BB24ZZZ Computerized Tomography (CT Scan) of Bilateral Lungs (ICD-10-PCS; 2024-11-08)
DX: J90 Pleural effusion, not elsewhere classified (principal); Z53.29 Procedure and treatment not carried out because of patient's decision for other reasons

== ENCOUNTER 2024-11-09 06:50 | Inpatient (IN) | payer OTHER ==
[~2024-11-09] VITALS: Ht 172.7 cm; Wt 56.7 kg
--- NOTE | 2024-11-09 07:47 | NUR ---
PTE ALERTA VERBALIZA ESTUVO DANIEL EN EL HOSPITAL Y SE RETIRO Y SIN DARLO DE GEM, Y EL MISMO REGERESA Y VERBALIZA QUE TIENE AGUA EN LOS PULMONES. S HARDEEP JAYLIN S/V Y SE UBICA
--- NOTE | 2024-11-09 09:00 | NUR ---
SE ORIENTA OSBRE TRATAMIENTO MEDICO EL CUAL INDICA ENTENDER Y ACEPTAR. SE REALIZA EXTRACCION DE MUESTRAS BAJO MEDIDAS ASEPTICAS.
[2024-11-09 14:41] LABS: ABG PH 7.378 (7.35-7.45); ABG pCO2 42.7 mmHg (35-45); BASE EXCESS -0.6 mmol/l; BICARBONATE 24.6 mmol/l (23-25); SaO2 94.1 %; Tco2 25.9 mmol/l; allen test SATISFACTORY; mode ROOM AIR; o2 21 %; puncture site RADIAL RIGHT
[2024-11-09] MEDS ORDERED: IPRATROPIUM BROMIDE 0.5 MG/2.5 ML AMPUL.NEB IH SCH (17:20)
[2024-11-09] MEDS ORDERED: FUROsemide 20 MG/2 ML VIAL IV SCH (17:22)
[2024-11-09] MEDS ORDERED: ACETAMINOPHEN 500 MG GEL..CAP PO PRN (17:30)
[2024-11-09] MEDS ORDERED: FUROsemide 20 MG/2 ML VIAL ONE (18:29)
[2024-11-09 19:14] LABS: BASO % 1.1 % (0.1-1.2); EOS # 0.21 (0.04-0.54); EOS % 2.5 % (0.7-7.0); HEMATOCRIT 52.9 % (40.1-51.0); HEMOGLOBIN 17.2 g/dL (13.7-17.5); LYMPH # 1.97 (1.18-3.74); LYMPH % 23.3 % (19.3-53.1); MEAN CORPUSCULAR HEMOGLOBIN 27.9 pg (25.6-32.2); MONO # 0.65 (0.24-0.82); MONO % 7.7 % (4.7-12.5); NEUT # 5.52 (1.56-6.13); NEUT % 65.2 % (34.0-71.1); PLATELET COUNT 250 K/uL (163-369); RED BLOOD COUNT 6.17 M/uL (4.63-6.08); RED CELL DISTRIBUTION WIDTH 13.7 % (11.6-14.4)
[2024-11-09 19:32] LABS: COVID-19 AG NEGATIVE (NEGATIVE); INR 1.08; PARTIAL THROMBOPLASTIN TIME 28.1 SECONDS (22.0-34.0); PROTHROMBIN TIME 11.7 SECONDS (9.0-11.5)
[2024-11-09 19:46] LABS: BILIRUBIN TOTAL 1.61 mg/dL (0.3-1.2); CREATININE SERUM 0.99 mg/dL (0.70-1.30); GFR 71.84; GLOBULINA 3.3 G/DL (2.4-3.5); POTASSIUM 4.66 mEq/L (3.5-5.1); TOTAL PROTEIN 7.3 gm/dL (6.4-8.2)
[2024-11-09 19:51] LABS: URINE APPEARANCE Clear; URINE BILIRRUBIN Small (NEGATIVE); URINE BLOOD Negative; URINE COLOR Dark Yellow; URINE KETONE Trace (NEGATIVE); URINE LEUKOCYTE Negative; URINE NITRATE Negative; URINE PROTEIN Trace (NEGATIVE)
[2024-11-09 19:55] LABS: URINE BACTERIA 7.3 uL (0.0-1933); URINE EPITHELIAL CELLS 7.2 uL (0.0-38.8); URINE RBC 28.7 uL (0.0-20.8); URINE WBC 2.2 uL (0.0-23.2)
[2024-11-09 20:03] LABS: URINE CAST 1.17 uL (0.0-1.40); URINE GLUCOSE 500 MG/DL (NEGATIVE)
[2024-11-09 21:40] VITALS: BP 146/89
[2024-11-10 08:28] VITALS: BP 166/91; O2SAT 93
[2024-11-10] MEDS ORDERED: LISINOPRIL 5 MG TABLET PO SCH (09:00)
[2024-11-10] MEDS ORDERED: AMLODIPINE BESYLATE 10 MG TABLET PO SCH (09:00)
[2024-11-10 09:15] VITALS: O2SAT 95
== END 2024-11-10 14:21 | disposition left against medical advice (07) | DRG 723 ==
LOC: ER 06:50 → MEDJ 17:53
PROVIDERS: Emergency Medicine; General Practice; ADMIT Specialist; ATTEND Specialist
PROC: 4A033R1 Measurement of Arterial Saturation, Peripheral, Percutaneous Approach (ICD-10-PCS; principal; 2024-11-09)
PROC: 3E0F7GC Introduction of Other Therapeutic Substance into Respiratory Tract, Via Natural or Artificial Opening (ICD-10-PCS; 2024-11-09)
DX: C61 Malignant neoplasm of prostate (principal); C78.02 Secondary malignant neoplasm of left lung; J91.0 Malignant pleural effusion; J47.1 Bronchiectasis with (acute) exacerbation; Z53.29 Procedure and treatment not carried out because of patient's decision for other reasons; E11.29 Type 2 diabetes mellitus with other diabetic kidney complication; E11.21 Type 2 diabetes mellitus with diabetic nephropathy; N18.2 Chronic kidney disease, stage 2 (mild); I83.893 Varicose veins of bilateral lower extremities with other complications; E11.69 Type 2 diabetes mellitus with other specified complication; Z60.2 Problems related to living alone; I83.93 Asymptomatic varicose veins of bilateral lower extremities; I12.9 Hypertensive chronic kidney disease with stage 1 through stage 4 chronic kidney disease, or unspecified chronic kidney disease; Z79.4 Long term (current) use of insulin

== ENCOUNTER 2024-11-27 10:21 | Emergency (ER) | payer OTHER ==
[~2024-11-27] VITALS: Ht 172.7 cm; Wt 68.0 kg
[2024-11-27 14:32] LABS: ABG PH 7.428 (7.35-7.45); ABG PO2 81.7 mmHg (80-100); BASE EXCESS 4.7 mmol/l; SaO2 96.4 %; Tco2 31.4 mmol/l; allen test SATISFACTORY; mode ROOM AIR; o2 21 %; puncture site RADIAL LEFT
[2024-11-27 14:33] LABS: ABG pCO2 46.4 mmHg (35-45)
[2024-11-27 14:48] LABS: BASO % 0.4 % (0.1-1.2); EOS # 0.26 (0.04-0.54); EOS % 2.7 % (0.7-7.0); HEMATOCRIT 54.9 % (40.1-51.0); HEMOGLOBIN 17.6 g/dL (13.7-17.5); LYMPH # 1.85 (1.18-3.74); MEAN CORPUSCULAR HEMOGLOBIN 27.3 pg (25.6-32.2); MONO # 0.73 (0.24-0.82); MONO % 7.5 % (4.7-12.5); NEUT # 6.79 (1.56-6.13); NEUT % 69.6 % (34.0-71.1); PLATELET COUNT 266 K/uL (163-369); RED BLOOD COUNT 6.45 M/uL (4.63-6.08); RED CELL DISTRIBUTION WIDTH 14.6 % (11.6-14.4)
[2024-11-27 15:00] LABS: POTASSIUM 4.4 mEq/L (3.5-5.1)
[2024-11-27 15:10] LABS: ALBUMIN 3.8 gm/dL (3.4-5.0); BILIRUBIN TOTAL 1.38 mg/dL (0.3-1.2); CALCIUM 9.4 mg/dL (8.5-10.1); CREATININE SERUM 0.93 mg/dL (0.70-1.30); GFR 77.22; GLOBULINA 3.7 G/DL (2.4-3.5); TOTAL PROTEIN 7.5 gm/dL (6.4-8.2)
[2024-11-27 15:59] LABS: COVID-19 AG NEGATIVE (NEGATIVE)
== END 2024-11-27 20:53 | disposition home or self-care (01) ==
LOC: ER 10:21
PROVIDERS: Emergency Medicine
DX: J45.909 Unspecified asthma, uncomplicated (principal); C34.90 Malignant neoplasm of unspecified part of unspecified bronchus or lung; J90 Pleural effusion, not elsewhere classified; Z20.822 Contact with and (suspected) exposure to COVID-19

== ENCOUNTER 2024-12-07 11:52 | Inpatient (IN) | payer OTHER ==
[~2024-12-07] VITALS: Ht 167.6 cm; Wt 68.0 kg
--- NOTE | 2024-12-07 12:57 | NUR ---
SE RECIBE PACIENTE ALERTA Y ORIENTADO X3, REFIERE SENTIR DIFICULTAD RESPIRATORIA Y FATIGA LA CAMINAR. SE REALIZA EKG Y SE PRESENTA A DR. GAVIN. SE UBICA EN BRIAN Y SE COLOCA CANULA NASAL @3LT/MIN.
--- NOTE | 2024-12-07 14:17 | NUR ---
PTE EVALUADO POR GAVIN. SE ORIENMTA SOBRE TRATAMIENTO, VERBALIZA ENTENDER. SE COLECTA MUESTRAS DE LAB DELLA ORDEN MEDICA BAJO MEDIDAS ASEPTICAS. SE NOTFICAN ABG A MR. SHABAZZ.
[2024-12-07 14:32] LABS: BASO % 0.4 % (0.1-1.2); EOS # 0.07 (0.04-0.54); EOS % 0.6 % (0.7-7.0); LYMPH # 1.11 (1.18-3.74); LYMPH % 9.3 % (19.3-53.1); MEAN PLATELET VOLUME 11.40 fl (9.4-12.4); MONO # 0.73 (0.24-0.82); MONO % 6.1 % (4.7-12.5); NEUT # 9.88 (1.56-6.13); NEUT % 83.2 % (34.0-71.1); RED CELL DISTRIBUTION WIDTH 14.6 % (11.6-14.4)
[2024-12-07 15:06] LABS: ALT/SGPT 21.0 U/L (12-78); AST/SGOT 23.0 U/L (15-37); BILIRUBIN TOTAL 1.48 mg/dL (0.3-1.2); BUN CREA RATIO 16.0 (7.0-25.0); CREATININE SERUM 1.02 mg/dL (0.70-1.30); GFR 69.41; GLOBULINA 3.2 G/DL (2.4-3.5); GLUCOSE FASTING 109.0 mg/dL (65-100); OSMOLALITY SERUM 289.0 MOSM/KG (275-295)
[2024-12-07 15:15] LABS: COVID-19 AG NEGATIVE (NEGATIVE)
[2024-12-07 15:17] LABS: EOSINOPHIL MAN 1.0 %; LYMPHOCYTE MAN 4.0 %; MONOCYTE MAN 6.0 %; NEUTROPHILS MAN 80.0 %
[2024-12-07 16:42] LABS: ABG PH 7.398 (7.35-7.45); ABG PO2 58.6 mmHg (80-100); BICARBONATE 27.6 mmol/l (23-25)
[2024-12-07 16:43] LABS: o2 21 %
[2024-12-07] MEDS ORDERED: CEFTRIAXONE SODIUM 2,000 MG in 0.9 % SODIUM CHLORIDE 100 ML IV SCH (16:44)
[2024-12-07] MEDS ORDERED: ACETAMINOPHEN 500 MG GEL..CAP PO PRN (16:45)
[2024-12-07] MEDS ORDERED: ONDANSETRON HCL 4 MG in 0.9 % SODIUM CHLORIDE 50 ML IV PRN (16:45)
[2024-12-07] MEDS ORDERED: IPRATROPIUM BROMIDE 0.5 MG/2.5 ML AMPUL.NEB IH SCH (17:00)
[2024-12-07 20:14] VITALS: BP 108/69; O2SAT 99
[2024-12-07 20:14] LABS: INR 1.1
[2024-12-07 21:58] VITALS: BP 140/76; O2SAT 95
[2024-12-07 22:38] LABS: URINE APPEARANCE Clear; URINE BILIRRUBIN Negative (NEGATIVE); URINE BLOOD Negative; URINE COLOR Yellow; URINE KETONE Negative (NEGATIVE); URINE LEUKOCYTE Negative; URINE NITRATE Negative; URINE PROTEIN Negative (NEGATIVE); URINE UROBILINOGEN 1.0 E.U./dl
[2024-12-07 22:40] LABS: URINE GLUCOSE >=1000 MG/DL (NEGATIVE)
[2024-12-07 22:41] LABS: URINE BACTERIA 8.3 uL (0.0-1933); URINE RBC 2.3 uL (0.0-20.8); URINE WBC 2.1 uL (0.0-23.2)
[2024-12-07 22:43] LABS: URINE CAST 0.14 uL (0.0-1.40); URINE EPITHELIAL CELLS 0.6 uL (0.0-38.8)
[2024-12-08 02:27] VITALS: BP 110/75; O2SAT 96
[2024-12-08] MEDS ORDERED: AMLODIPINE BESYLATE 10 MG TABLET PO SCH (09:00)
[2024-12-08] MEDS ORDERED: FAMOTIDINE/PF 20 MG in 0.9 % SODIUM CHLORIDE 8 ML IV PUSH SCH (09:00)
[2024-12-08 09:13] VITALS: BP 150/78; O2SAT 92
[2024-12-08 17:37] VITALS: BP 134/74; O2SAT 95
[2024-12-08 18:10] LABS: MONONUCLEAR 80.9 %; POLYMORPHONUCLEAR 19.1 %
[2024-12-08 18:29] LABS: GLU PLEURAL FLUID 139.0 mg/dl; LDH PLEURAL FLUID 170.0 U/L; TP PLEURAL FLUID 4.7 g/dl
[2024-12-09 02:36] VITALS: BP 155/90; O2SAT 96
[2024-12-09 07:05] LABS: BASO % 0.6 % (0.1-1.2); EOS # 0.17 (0.04-0.54); EOS % 1.3 % (0.7-7.0); LYMPH # 1.72 (1.18-3.74); LYMPH % 13.6 % (19.3-53.1); MEAN PLATELET VOLUME 12.20 fl (9.4-12.4); MONO # 0.96 (0.24-0.82); MONO % 7.6 % (4.7-12.5); NEUT # 9.68 (1.56-6.13); NEUT % 76.6 % (34.0-71.1); RED CELL DISTRIBUTION WIDTH 14.6 % (11.6-14.4)
[2024-12-09 07:57] LABS: ALT/SGPT 17.0 U/L (12-78); AST/SGOT 19.0 U/L (15-37); BILIRUBIN TOTAL 1.69 mg/dL (0.3-1.2); BUN CREA RATIO 28.0 (7.0-25.0); CREATININE SERUM 1.05 mg/dL (0.70-1.30); GFR 67.13; GLOBULINA 3.1 G/DL (2.4-3.5); GLUCOSE FASTING 99.0 mg/dL (65-100); LDH 204.0 U/L (87-241); OSMOLALITY SERUM 287.0 MOSM/KG (275-295)
== END 2024-12-09 07:30 | disposition left against medical advice (07) | DRG 181 ==
LOC: ER 11:52 → MEDI 17:22 → SEC-K 17:22 → MEDI 18:11
PROVIDERS: Emergency Medicine; General Practice; Internal Medicine Infectious Disease; Radiology Vascular & Interventional Radiology; ADMIT Specialist; ATTEND Specialist
PROC: 0W9B3ZZ Drainage of Left Pleural Cavity, Percutaneous Approach (ICD-10-PCS; principal; 2024-12-08)
PROC: 3E0F7GC Introduction of Other Therapeutic Substance into Respiratory Tract, Via Natural or Artificial Opening (ICD-10-PCS; 2024-12-08)
DX: C78.2 Secondary malignant neoplasm of pleura (principal); C34.90 Malignant neoplasm of unspecified part of unspecified bronchus or lung; J90 Pleural effusion, not elsewhere classified; R65.10 Systemic inflammatory response syndrome (SIRS) of non-infectious origin without acute organ dysfunction; D72.829 Elevated white blood cell count, unspecified; J44.9 Chronic obstructive pulmonary disease, unspecified; J43.2 Centrilobular emphysema; C61 Malignant neoplasm of prostate; I10 Essential (primary) hypertension; E11.9 Type 2 diabetes mellitus without complications; E78.00 Pure hypercholesterolemia, unspecified; Z87.891 Personal history of nicotine dependence

== ENCOUNTER 2025-01-05 10:39 | Outpatient (CLI) | payer OTHER ==
[2025-01-05 11:44] LABS: BASO % 0.6 % (0.1-1.2); EOS # 0.17 (0.04-0.54); EOS % 1.9 % (0.7-7.0); LYMPH # 1.43 (1.18-3.74); LYMPH % 16.0 % (19.3-53.1); MEAN PLATELET VOLUME 11.80 fl (9.4-12.4); MONO # 0.71 (0.24-0.82); MONO % 7.9 % (4.7-12.5); NEUT # 6.54 (1.56-6.13); NEUT % 73.2 % (34.0-71.1); RED CELL DISTRIBUTION WIDTH 14.4 % (11.6-14.4)
[2025-01-05 12:38] LABS: ALT/SGPT 13.0 U/L (12-78); AST/SGOT 15.0 U/L (15-37); BILIRUBIN TOTAL 1.9 mg/dL (0.3-1.2); BUN CREA RATIO 24.0 (7.0-25.0); CREATININE SERUM 0.83 mg/dL (0.70-1.30); GFR 88.05; GLOBULINA 2.9 G/DL (2.4-3.5); GLUCOSE FASTING 89.0 mg/dL (65-100); OSMOLALITY SERUM 285.0 MOSM/KG (275-295)
== END 2025-01-05 10:42 | disposition home or self-care (01) ==
LOC: LAB 10:39
PROVIDERS: ATTEND Internal Medicine Hematology & Oncology
DX: C34.92 Malignant neoplasm of unspecified part of left bronchus or lung (principal)

== ENCOUNTER 2025-01-22 21:40 | Emergency (ER) | payer OTHER ==
[~2025-01-22] VITALS: Ht 177.8 cm; Wt 56.7 kg
[2025-01-22] MEDS ORDERED: LEVALBUTEROL HCL 1.25 MG/3 ML SOLUTION IH ONE (22:15)
[2025-01-22 22:25] LABS: BASO % 0.5 % (0.1-1.2); EOS # 0.15 (0.04-0.54); EOS % 1.2 % (0.7-7.0); LYMPH # 0.56 (1.18-3.74); LYMPH % 4.3 % (19.3-53.1); MEAN PLATELET VOLUME 10.60 fl (9.4-12.4); MONO # 1.00 (0.24-0.82); MONO % 7.7 % (4.7-12.5); NEUT # 11.07 (1.56-6.13); NEUT % 85.6 % (34.0-71.1); RED CELL DISTRIBUTION WIDTH 15.1 % (11.6-14.4)
[2025-01-22] MEDS ORDERED: CEFTRIAXONE SODIUM 1,000 MG VIAL IV ONE (22:45)
[2025-01-22 22:50] LABS: ALT/SGPT 14.0 U/L (12-78); AST/SGOT 16.0 U/L (15-37); BILIRUBIN TOTAL 1.47 mg/dL (0.3-1.2); BUN CREA RATIO 17.0 (7.0-25.0); CREATININE SERUM 1.15 mg/dL (0.70-1.30); GFR 60.44; GLOBULINA 2.9 G/DL (2.4-3.5); GLUCOSE FASTING 146.0 mg/dL (65-100); OSMOLALITY SERUM 288.0 MOSM/KG (275-295)
[2025-01-22 22:52] LABS: ABG PH 7.354 (7.35-7.45); BICARBONATE 27.6 mmol/l (23-25)
[2025-01-22 22:53] LABS: o2 32 %
[2025-01-22 22:54] LABS: ABG PO2 72.5 mmHg (80-100)
[2025-01-23 00:04] LABS: COVID-19 AG NEGATIVE (NEGATIVE)
== END 2025-01-23 10:55 | disposition home or self-care (01) ==
LOC: ER 21:40
PROVIDERS: General Practice
DX: J45.909 Unspecified asthma, uncomplicated (principal); R06.02 Shortness of breath; J90 Pleural effusion, not elsewhere classified; C34.90 Malignant neoplasm of unspecified part of unspecified bronchus or lung; Z20.822 Contact with and (suspected) exposure to COVID-19
CPT/HCPCS: 36415; 71045; 82803; 94640; 96365; 99283; J0696

== ENCOUNTER 2025-01-25 13:09 | Outpatient (CLI) | payer OTHER | END 2025-01-25 13:13 | disposition home or self-care (01) | LOC: RAD 13:09 | PROVIDERS: ATTEND Specialist | DX: J90 Pleural effusion, not elsewhere classified (principal); C34.80 Malignant neoplasm of overlapping sites of unspecified bronchus and lung; J44.1 Chronic obstructive pulmonary disease with (acute) exacerbation ==

== ENCOUNTER 2025-01-27 06:56 | Emergency (ER) | payer OTHER ==
[~2025-01-27] VITALS: Ht 170.2 cm; Wt 56.7 kg
[2025-01-27 07:05] VITALS: BP 159/95; O2SAT 94
[2025-01-27] MEDS ORDERED: METHYLPREDNISOLONE SOD SUCC 125 MG VIAL IV STA (07:29)
[2025-01-27] MEDS ORDERED: LEVALBUTEROL HCL 0.63 MG/3 ML SOLUTION IH SCH (07:30)
[2025-01-27] MEDS ORDERED: METHYLPREDNISOLONE SOD SUCC 40 MG VIAL ONE (07:33)
[2025-01-27 07:54] LABS: BASO % 0.7 % (0.1-1.2); EOS # 0.34 (0.04-0.54); EOS % 3.9 % (0.7-7.0); LYMPH # 1.35 (1.18-3.74); LYMPH % 15.6 % (19.3-53.1); MEAN PLATELET VOLUME 11.10 fl (9.4-12.4); MONO # 0.50 (0.24-0.82); MONO % 5.8 % (4.7-12.5); NEUT # 6.39 (1.56-6.13); NEUT % 73.7 % (34.0-71.1); RED CELL DISTRIBUTION WIDTH 15.1 % (11.6-14.4)
[2025-01-27] MEDS ORDERED: LEVALBUTEROL HCL 1.25 MG/3 ML SOLUTION IH ONE (07:56)
[2025-01-27 08:32] LABS: ALT/SGPT 23.0 U/L (12-78); AST/SGOT 26.0 U/L (15-37); BILIRUBIN TOTAL 2.48 mg/dL (0.3-1.2); BUN CREA RATIO 17.0 (7.0-25.0); CREATININE SERUM 0.98 mg/dL (0.70-1.30); GFR 72.69; GLOBULINA 3.6 G/DL (2.4-3.5); GLUCOSE FASTING 151.0 mg/dL (65-100); OSMOLALITY SERUM 289.0 MOSM/KG (275-295)
[2025-01-27 08:46] LABS: COVID-19 AG NEGATIVE (NEGATIVE)
[2025-01-27 08:47] LABS: INR 1.11
[2025-01-27 08:59] LABS: ABG PH 7.432 (7.35-7.45); ABG PO2 95.1 mmHg (80-100); BICARBONATE 25.6 mmol/l (23-25); o2 21 %
[2025-01-27] MEDS ORDERED: ACETAMINOPHEN 500 MG GEL..CAP PO ONE (09:02)
[2025-01-27 10:19] LABS: URINE APPEARANCE Clear; URINE BILIRRUBIN Small (NEGATIVE); URINE BLOOD NHT; URINE COLOR Dark Yellow; URINE GLUCOSE Negative (NEGATIVE); URINE KETONE Trace (NEGATIVE); URINE LEUKOCYTE Trace; URINE NITRATE Negative; URINE PROTEIN 30 (NEGATIVE); URINE UROBILINOGEN 2.0 E.U./dl
[2025-01-27 10:20] LABS: URINE BACTERIA 15.5 uL (0.0-1933); URINE CAST 2.19 uL (0.0-1.40); URINE EPITHELIAL CELLS 8.4 uL (0.0-38.8); URINE RBC 36.6 uL (0.0-20.8); URINE WBC 7.3 uL (0.0-23.2)
== END 2025-01-27 11:57 | disposition home or self-care (01) ==
LOC: ER 07:09
PROVIDERS: General Practice
DX: C34.90 Malignant neoplasm of unspecified part of unspecified bronchus or lung (principal); J90 Pleural effusion, not elsewhere classified; J44.9 Chronic obstructive pulmonary disease, unspecified; R06.02 Shortness of breath; J45.909 Unspecified asthma, uncomplicated; Z20.822 Contact with and (suspected) exposure to COVID-19; I10 Essential (primary) hypertension
CPT/HCPCS: 36415; 82803; 94640; 96365; 99282; J3490

== ENCOUNTER 2025-01-28 14:09 | Inpatient (IN) | payer OTHER ==
[~2025-01-28] VITALS: Ht 162.6 cm; Wt 56.7 kg
[2025-01-28] MEDS ORDERED: METHYLPREDNISOLONE SOD SUCC 125 MG VIAL IV ONE (16:45)
[2025-01-28] MEDS ORDERED: 0.9 % SODIUM CHLORIDE 1,000 ML IV SCH (16:45)
[2025-01-28] MEDS ORDERED: METHYLPREDNISOLONE SOD SUCC 125 MG VIAL ONE (16:59)
[2025-01-28] MEDS ORDERED: LEVALBUTEROL HCL 1.25 MG/3 ML SOLUTION IH SCH (17:00)
[2025-01-28 17:32] LABS: BASO % 0.4 % (0.1-1.2); EOS # 0.20 (0.04-0.54); EOS % 2.2 % (0.7-7.0); LYMPH # 1.48 (1.18-3.74); LYMPH % 16.1 % (19.3-53.1); MEAN PLATELET VOLUME 10.70 fl (9.4-12.4); MONO # 0.64 (0.24-0.82); MONO % 7.0 % (4.7-12.5); NEUT # 6.77 (1.56-6.13); NEUT % 73.8 % (34.0-71.1); RED CELL DISTRIBUTION WIDTH 15.2 % (11.6-14.4)
[2025-01-28] MEDS ORDERED: LEVALBUTEROL HCL 1.25 MG/3 ML SOLUTION IH ONE (17:35)
[2025-01-28 17:59] LABS: ALT/SGPT 20.0 U/L (12-78); AST/SGOT 20.0 U/L (15-37); BILIRUBIN TOTAL 1.3 mg/dL (0.3-1.2); BUN CREA RATIO 25.0 (7.0-25.0); CREATININE SERUM 1.02 mg/dL (0.70-1.30); GFR 69.41; GLOBULINA 3.4 G/DL (2.4-3.5); GLUCOSE FASTING 105.0 mg/dL (65-100); OSMOLALITY SERUM 292.0 MOSM/KG (275-295)
[2025-01-28 18:05] LABS: COVID-19 AG NEGATIVE (NEGATIVE)
[2025-01-28 18:59] LABS: ABG PH 7.401 (7.35-7.45); BICARBONATE 25.9 mmol/l (23-25)
[2025-01-28 19:02] LABS: o2 21 %
[2025-01-28 19:03] LABS: ABG PO2 53.3 mmHg (80-100)
[2025-01-28] MEDS ORDERED: IPRATROPIUM BROMIDE 0.5 MG/2.5 ML AMPUL.NEB IH SCH (19:28)
[2025-01-28] MEDS ORDERED: ONDANSETRON HCL 4 MG in 0.9 % SODIUM CHLORIDE 50 ML IV PRN (19:30)
[2025-01-28] MEDS ORDERED: ACETAMINOPHEN 500 MG GEL..CAP PO PRN (19:30)
[2025-01-28] MEDS ORDERED: LEVALBUTEROL HCL 0.63 MG/3 ML SOLUTION IH SCH (20:00)
[2025-01-28] MEDS ORDERED: LEVALBUTEROL HCL 0.63 MG/3 ML SOLUTION IH ONE (22:10)
[2025-01-28] MEDS ORDERED: IPRATROPIUM BROMIDE 0.5 MG/2.5 ML AMPUL.NEB IH ONE (22:10)
[2025-01-28 23:29] LABS: INR 1.1
[2025-01-29 01:39] VITALS: BP 150/82; O2SAT 97
[2025-01-29 06:44] VITALS: BP 149/79; O2SAT 98
[2025-01-29 08:02] VITALS: BP 162/84; O2SAT 100
[2025-01-29] MEDS ORDERED: AMLODIPINE BESYLATE 10 MG TABLET PO SCH (09:00)
[2025-01-29] MEDS ORDERED: AMLODIPINE BESYLATE 5 MG TABLET PO SCH (10:54)
[2025-01-29 12:14] LABS: URINE APPEARANCE Clear; URINE BILIRRUBIN Negative (NEGATIVE); URINE BLOOD Negative; URINE COLOR Yellow; URINE GLUCOSE Negative (NEGATIVE); URINE KETONE Negative (NEGATIVE); URINE LEUKOCYTE Negative; URINE NITRATE Negative; URINE PROTEIN Negative (NEGATIVE); URINE UROBILINOGEN 1.0 E.U./dl
[2025-01-29 12:15] LABS: URINE BACTERIA 19.1 uL (0.0-1933); URINE RBC 2.6 uL (0.0-20.8)
[2025-01-29 12:25] LABS: URINE CAST 0.43 uL (0.0-1.40); URINE EPITHELIAL CELLS 1.3 uL (0.0-38.8); URINE WBC 0.6 uL (0.0-23.2)
[2025-01-29] MEDS ORDERED: ENOXAPARIN SODIUM 40 MG/0.4 ML SYRINGE SUBCUTANEO SCH (12:56)
[2025-01-29 18:11] VITALS: BP 130/76; O2SAT 97
[2025-01-30 00:32] VITALS: BP 102/67; O2SAT 94
[2025-01-30 11:04] VITALS: BP 129/70; O2SAT 98
[2025-01-30 16:39] VITALS: BP 101/71; O2SAT 95
[2025-01-31 00:06] VITALS: BP 126/80; O2SAT 95
[2025-01-31 08:14] VITALS: BP 109/64
[2025-01-31 16:34] VITALS: BP 108/70
[2025-02-01 00:54] VITALS: BP 118/72; O2SAT 96
[2025-02-01 07:59] VITALS: BP 122/84; O2SAT 97
[2025-02-01 10:32] LABS: BASO % 0.4 % (0.1-1.2); EOS # 0.11 (0.04-0.54); EOS % 1.3 % (0.7-7.0); LYMPH # 1.00 (1.18-3.74); LYMPH % 12.1 % (19.3-53.1); MEAN PLATELET VOLUME 11.00 fl (9.4-12.4); MONO # 0.54 (0.24-0.82); MONO % 6.5 % (4.7-12.5); NEUT # 6.54 (1.56-6.13); NEUT % 79.3 % (34.0-71.1); RED CELL DISTRIBUTION WIDTH 15.4 % (11.6-14.4)
[2025-02-01 11:07] LABS: ALT/SGPT 18.0 U/L (12-78); AST/SGOT 20.0 U/L (15-37); BILIRUBIN TOTAL 1.97 mg/dL (0.3-1.2); BUN CREA RATIO 31.0 (7.0-25.0); CREATININE SERUM 1.17 mg/dL (0.70-1.30); GFR 59.25; GLOBULINA 3.0 G/DL (2.4-3.5); GLUCOSE FASTING 122.0 mg/dL (65-100); OSMOLALITY SERUM 291.0 MOSM/KG (275-295)
[2025-02-01 18:49] VITALS: BP 158/90; O2SAT 000
[2025-02-01 20:20] LABS: MONONUCLEAR 89.7 %; POLYMORPHONUCLEAR 10.3 %
[2025-02-01 20:57] LABS: GLU PLEURAL FLUID 146.0 mg/dl; LDH PLEURAL FLUID 142.0 U/L; TP PLEURAL FLUID 4.8 g/dl
[2025-02-02 00:27] VITALS: BP 132/77; O2SAT 93
[2025-02-02 08:20] VITALS: BP 134/79; O2SAT 99
[2025-02-02 17:28] VITALS: BP 145/70; O2SAT 97
[2025-02-02] MEDS ORDERED: HALOPERIDOL LACTATE 5 MG/ML AMPUL IV PRN (23:45)
[2025-02-03 02:10] VITALS: BP 155/90; O2SAT 99
[2025-02-03 08:02] VITALS: BP 167/89; O2SAT 97
[2025-02-03 16:52] VITALS: BP 155/81; O2SAT 95
[2025-02-04 00:15] VITALS: BP 143/87; O2SAT 95
[2025-02-04 08:08] VITALS: BP 145/84; O2SAT 96
[2025-02-04 17:23] VITALS: BP 160/85; O2SAT 96
[2025-02-05 02:03] VITALS: BP 138/84; O2SAT 97
[2025-02-05 08:21] VITALS: BP 154/79; O2SAT 96
[2025-02-05 17:21] VITALS: BP 129/71
[2025-02-06 02:32] VITALS: BP 120/58; O2SAT 95
[2025-02-06 07:47] LABS: BASO % 0.9 % (0.1-1.2); EOS # 0.07 (0.04-0.54); EOS % 1.5 % (0.7-7.0); LYMPH # 0.87 (1.18-3.74); LYMPH % 19.2 % (19.3-53.1); MEAN PLATELET VOLUME 12.00 fl (9.4-12.4); MONO # 0.56 (0.24-0.82); NEUT # 2.98 (1.56-6.13); NEUT % 65.8 % (34.0-71.1); RED CELL DISTRIBUTION WIDTH 14.6 % (11.6-14.4)
[2025-02-06 07:48] LABS: MONO % 12.4 % (4.7-12.5)
[2025-02-06 08:15] LABS: BUN CREA RATIO 37.0 (7.0-25.0); CREATININE SERUM 0.86 mg/dL (0.70-1.30); GFR 84.52; GLUCOSE FASTING 94.0 mg/dL (65-100); OSMOLALITY SERUM 275.0 MOSM/KG (275-295)
[2025-02-06 08:54] VITALS: BP 135/86; O2SAT 98
[2025-02-06 17:57] VITALS: BP 153/86
[2025-02-07 02:48] VITALS: BP 104/71; O2SAT 97
[2025-02-07 08:23] VITALS: BP 135/90
[2025-02-07 10:24] LABS: ABG PH 7.445 (7.35-7.45); ABG PO2 80.6 mmHg (80-100); BICARBONATE 31.6 mmol/l (23-25)
[2025-02-07 10:25] LABS: o2 21 %
[2025-02-07 17:01] VITALS: BP 127/62; O2SAT 96
[2025-02-08 01:26] VITALS: BP 101/60; O2SAT 98
[2025-02-08 08:35] VITALS: BP 94/66; O2SAT 92
== END 2025-02-08 14:26 | disposition home or self-care (01) | DRG 187 ==
LOC: ER 14:09 → MEDJ 21:21
PROVIDERS: General Practice; Internal Medicine; Radiology Vascular & Interventional Radiology; Student in an Organized Health Care Education/Training Program; ADMIT Internal Medicine; ATTEND Internal Medicine
PROC: BW24ZZZ Computerized Tomography (CT Scan) of Chest and Abdomen (ICD-10-PCS; 2025-01-28)
PROC: 0W9930Z Drainage of Right Pleural Cavity with Drainage Device, Percutaneous Approach (ICD-10-PCS; principal; 2025-01-31)
DX: J90 Pleural effusion, not elsewhere classified (principal); C34.90 Malignant neoplasm of unspecified part of unspecified bronchus or lung

== ENCOUNTER → 2025-02-12 | Emergency (ER) | payer OTHER ==
[~2025-02-12] VITALS: Ht 172.7 cm; Wt 56.7 kg
[2025-02-12 15:49] LABS: BASO % 0.6 % (0.1-1.2); EOS # 0.08 (0.04-0.54); EOS % 1.5 % (0.7-7.0); LYMPH # 1.19 (1.18-3.74); LYMPH % 23.0 % (19.3-53.1); MEAN PLATELET VOLUME 9.50 fl (9.4-12.4); MONO # 0.61 (0.24-0.82); MONO % 11.8 % (4.7-12.5); NEUT # 3.25 (1.56-6.13); NEUT % 62.7 % (34.0-71.1); RED CELL DISTRIBUTION WIDTH 15.0 % (11.6-14.4)
[2025-02-12 16:19] LABS: ALT/SGPT 11.0 U/L (12-78); AST/SGOT 17.0 U/L (15-37); BILIRUBIN TOTAL 0.94 mg/dL (0.3-1.2); BUN CREA RATIO 18.0 (7.0-25.0); CREATININE SERUM 0.77 mg/dL (0.70-1.30); GFR 96.02; GLOBULINA 3.5 G/DL (2.4-3.5); GLUCOSE FASTING 115.0 mg/dL (65-100); OSMOLALITY SERUM 275.0 MOSM/KG (275-295)
== END | disposition left against medical advice (07) ==
LOC: ER 12:36
PROVIDERS: General Practice
DX: J90 Pleural effusion, not elsewhere classified (principal); I10 Essential (primary) hypertension; E11.9 Type 2 diabetes mellitus without complications